=== PATIENT | male | born 1975 | race Caucasian/White ===

== ENCOUNTER 2017-06-25 12:30 | Emergency (ER) | payer OTHER ==
--- NOTE | 2017-06-25 12:55 | Emergency Department Record ---
History of Present Illness - General Chief complaint: Extremity Problem Stated complaint: R GREAT TOE INFECTION Time Seen by Provider: 06/25/17 12:49 Source: Patient Mode of Arrival: Ambulatory Limitations: No limitations - History of Present Illness Initial comments: 41 yo male presents with a right great toe concern. He has had 2 days of warmth , redness and swelling at the medial great toe. No pus. 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 The medial warmth, redness and swelling is new the last 2 days on the side that the toe is ingrown. MD Complaint: Extremity swelling, Joint swelling, Other (Right medial great toenail ingrown with swelling) -: Unknown Location: Right, Other Severity scale (1-10): 5 Quality: Aching Consistency: Intermittent Improves with: Nothing Worsens with: Walking, Weight bearing Associated Symptoms: Denies other symptoms - Related Data Previous Rx's Medication Instructions Recorded Cephalexin [Keflex] 500 mg PO TID #21 cap 06/25/17 Allergies Allergy/AdvReac Type Severity Reaction Status Date / Time No Known Drug Allergies Allergy Verified 06/25/17 12:38 Travel Screening - Travel/Exposure Within Last 30 Days Have you traveled within the last 30 days?: No Review of Systems Constitutional: Denies: Chills, Fever, Malaise Eyes: Denies: Eye discharge ENT: Denies: Congestion, Throat pain Respiratory: Denies: Cough Cardiovascular: Denies: Chest pain Endocrine: Denies: Fatigue Gastrointestinal: Denies: Abdominal pain, Diarrhea, Nausea, Vomiting Genitourinary: Denies: Dysuria Musculoskeletal: Reports: As per HPI, Arthralgia, Joint swelling Skin: Reports: As per HPI, Change in color Neurological: Denies: Confusion, Headache Psychiatric: Denies: Anxiety Hematological/Lymphatic: Denies: Blood Clots, Easy bleeding, Easy bruising Past Medical History - SOCIAL HISTORY Smoking Status: Heavy tobacco smoker (>10/day) Alcohol Use: None Drug Use: None - RESPIRATORY Hx Respiratory Disorders: No - CARDIOVASCULAR Hx Cardio Disorders: No - NEURO Hx Neuro Disorders: No - GI Hx GI Disorders: No - Hx Genitourinary Disorders: No - ENDOCRINE Hx Endocrine Disorders: No - MUSCULOSKELETAL Hx Musculoskeletal Disorders: No - PSYCH Hx Psych Problems: No - HEMATOLOGY/ONCOLOGY Hx Hematology/Oncology Disorders: No Family Medical History Any Significant Family History?: No Physical Exam - General General Appearance: Alert, Oriented x3, Cooperative, No acute distress Limitations: No limitations - Head Head exam: Normal inspection - Eye Eye exam: Normal appearance - ENT ENT exam: Normal exam Ear exam: Normal external inspection Nasal Exam: Normal inspection Mouth exam: Normal external inspection - Neck Neck exam: Normal inspection - Cardiovascular Peripheral Pulses: 2+: Dorsalis Pedis (R) - Rectal Rectal exam: Deferred - exam: Deferred - Extremities Extremities exam: Full ROM, Normal capillary refill, Tenderness. negative: Normal inspection Image of Feet: 1 - chronic thickened great toe nail consistent with fungal. The medial edge of the nail is ingrown with warmth and redness. No pus - Neurological Neurological exam: Alert, Oriented X3 - Psychiatric Psychiatric exam: Normal affect, Normal mood - Skin Skin exam: Dry, Intact, Normal color, Warm Description of rash: Erythematous Course Vital Signs 06/25/17 12:35 Temperature 97.9 F Pulse Rate 91 H Respiratory 20 Rate Blood Pressure 131/98 Pulse Ox 97 - Reevaluation(s) Reevaluation #1: Toe Digital Block Betadine Prep Sensorcaine/Lidocaine 50/50 mix plain The nail was prepped The medial border (20%) was removed with sharp dissection Pus was expressed and the cavity was irrigated until clear of pus We discussed home care and a podiatry referral was made. 06/25/17 12:53 Disposition Disposition: Discharge Clinical Impression: Ingrown toenail, Paronychia Disposition: Home, Self-Care Condition: (1) Good Instructions: Paronychia (ED), Ingrown Nail (ED) Additional Instructions: Clean the area daily Keep dry and clean Take the antibiotics as directed Return if worse, fever, spreading redness or new concerns Prescriptions: Cephalexin [Keflex] 500 mg PO TID #21 cap Referrals: GAIL AGGARWAL [DOCTOR OF PODIATRY MEDICINE] - [facility] [Provider Group] Forms: Patient Portal Access Time of Disposition: 13:13 Quality - Quality Measures Quality Measures: N/A - Blood Pressure Screening Does Patient Have Any of the Following: No Blood Pressure Classification: Hypertensive Reading Systolic Measurement: 131 Diastolic Measurement: 98 Screening for High Blood Pressure: < Pre-Hypertensive BP, F/U Documented > [ [id number]] Pre-Hypertensive Follow-up Interventions: Referral to alternative/primary care provider.
== END 2017-06-25 13:26 | disposition home or self-care (01) ==
LOC: ER 12:30
DX: L60.0 Ingrowing nail (principal); L03.031 Cellulitis of right toe; F17.210 Nicotine dependence, cigarettes, uncomplicated
CPT/HCPCS: 11765; 99283